=== PATIENT | male | born 1995 | race Two or more races ===

== ENCOUNTER 2019-06-06 17:06 | Inpatient (IN) | payer MEDICAID, OTHER ==
[~2019-06-06] VITALS: Ht 167.6 cm; Wt 68.9 kg
[2019-06-06] MEDS ORDERED: SODIUM CHLORIDE 0.9% 1,000 ML IVB ONE (17:39)
[2019-06-06] MEDS ORDERED: IODIXANOL 320MG/ML 100ML BTL IV ONE (17:42)
[2019-06-06] MEDS ORDERED: ONDANSETRON HCL 4 MG/2 ML VIAL IV ONE (17:45)
[2019-06-06] MEDS ORDERED: MORPHINE SULF INJ 2 MG/ML SYRINGE 1ML IV ONE (17:45)
[2019-06-06 17:58] LABS: Basophils # (auto) 0 10 ^3/uL (0-0.2); Eosinophils # (auto) 0.1 10 ^3/uL (0-0.8); Mean Corpuscular Hemoglobin 28.5 pg (28.0-32.0); Monocytes # (auto) 0.7 10 ^3/uL (0-1.3); Neutrophils % (auto) 50.5 % (37.0-80.0)
[2019-06-06 18:00] LABS: Basophils % (auto) 0.4 % (0.0-2.0); Eosinophils % (auto) 1.7 % (0.0-7.0); Hematocrit 53.2 % (41.0-53.0); Hemoglobin 17.7 g/dL (13.5-17.5); Lymphocytes % (auto) 38.2 % (10.0-50.0); Mean Corpuscular Hgb Conc. 33.3 g/dL (32.0-36.0); Mean Corpuscular Volume 85.5 fL (80.0-100.0); Monocytes % (auto) 9.2 % (0.0-12.0); Neutrophils # (auto) 3.9 10 ^3/uL (1.6-8.6); Nucleated Red Blood Cells % 1.6 %; Platelet Count (auto) 363 10^3/uL (140-450); Red Blood Cells 6.22 10^6/uL (4.5-5.90); Red Cell Distribution Width 13.4 % (11.8-14.3); White Blood Cell 7.8 10^3/uL (4.4-10.8)
[2019-06-06] MEDS ORDERED: KETOROLAC TROMETH 15 mg/ml 1ML VL IV ONE (18:15)
[2019-06-06] MEDS ORDERED: KETOROLAC TROMETH 30 MG/ML 1ML VIAL ONE (18:16)
[2019-06-06 18:22] LABS: Calcium 9.1 mg/dL (8.5-10.1); Potassium 3.7 mmol/L (3.5-5.1)
[2019-06-06 18:25] LABS: BUN/Creatinine Ratio 7.4; Bilirubin, Total 0.4 mg/dL (0.2-1.0); Total Protein 8.4 g/dL (6.4-8.2)
[2019-06-06 19:01] LABS: INR 0.98 (0.9-1.15)
[2019-06-06 20:19] LABS: Urine Amorphous Crystal FEW /hpf (None Seen); Urine Bacteria NONE SEEN /hpf (None Seen); Urine Blood 1+ /uL (Negative); Urine WBC None Seen /hpf (0 - 3)
[2019-06-06] MEDS ORDERED: TAMSULOSIN HYDROCHLORIDE 0.4 MG CAP PO ONE (20:30)
[2019-06-06 20:32] LABS: Urine Specific Gravity > 1.050 (1.001-1.035)
[2019-06-06] MEDS: SODIUM CHLORIDE 0.9% 1,000 ML IV SCH (21:20)
[2019-06-06] MEDS ORDERED: ACETAMINOPHEN 325 MG TAB PO PRN (21:30)
[2019-06-06] MEDS ORDERED: hydrALAZINE HCL 25 MG TAB PO PRN (21:30)
[2019-06-06] MEDS ORDERED: HYDROcodone-ACET 5/325MG TAB PO PRN (21:30)
[2019-06-06] MEDS ORDERED: MORPHINE SULFATE 4 MG/ML SYR/VIAL IV PRN (21:30)
[2019-06-06] MEDS ORDERED: DOCUSATE SOD 100 MG CAP PO PRN (21:30)
[2019-06-06] MEDS ORDERED: ONDANSETRON HCL 4 MG/2 ML VIAL IV PRN (21:30)
[2019-06-06] MEDS: FINASTERIDE 5 MG TAB PO SCH (22:22)
[2019-06-06] MEDS: TAMSULOSIN HYDROCHLORIDE 0.4 MG CAP PO SCH (22:22)
[2019-06-07] MEDS: SODIUM CHLORIDE 0.9% 1,000 ML IV SCH ×3 (04:00→17:20)
[2019-06-07 05:00] VITALS: BP 148/73
[2019-06-07 05:41] LABS: Basophils # (auto) 0 10 ^3/uL (0-0.2); Basophils % (auto) 0.4 % (0.0-2.0); Eosinophils # (auto) 0.2 10 ^3/uL (0-0.8); Eosinophils % (auto) 2.3 % (0.0-7.0); Hematocrit 47.2 % (41.0-53.0); Hemoglobin 15.9 g/dL (13.5-17.5); Lymphocytes # (auto) 2.5 10 ^3/uL (0.4-5.4); Lymphocytes % (auto) 30.3 % (10.0-50.0); Mean Corpuscular Hemoglobin 28.9 pg (28.0-32.0); Mean Corpuscular Hgb Conc. 33.7 g/dL (32.0-36.0); Mean Corpuscular Volume 85.5 fL (80.0-100.0); Monocytes # (auto) 0.8 10 ^3/uL (0-1.3); Monocytes % (auto) 9.4 % (0.0-12.0); Neutrophils # (auto) 4.7 10 ^3/uL (1.6-8.6); Neutrophils % (auto) 57.6 % (37.0-80.0); Nucleated Red Blood Cells % 0.6 %; Platelet Count (auto) 332 10^3/uL (140-450); Red Blood Cells 5.52 10^6/uL (4.5-5.90); Red Cell Distribution Width 13.5 % (11.8-14.3); White Blood Cell 8.1 10^3/uL (4.4-10.8)
[2019-06-07 05:56] LABS: Calcium 8.9 mg/dL (8.5-10.1); Potassium 3.7 mmol/L (3.5-5.1)
[2019-06-07 06:10] LABS: BUN/Creatinine Ratio 10.7
[2019-06-07 09:05] VITALS: BP 130/76
[2019-06-07] MEDS: TAMSULOSIN HYDROCHLORIDE 0.4 MG CAP PO SCH (10:05)
[2019-06-07] MEDS: FINASTERIDE 5 MG TAB PO SCH (10:05)
[2019-06-07] MEDS: MORPHINE SULFATE 4 MG/ML SYR/VIAL IV PRN (11:30)
[2019-06-07 13:00] VITALS: BP 144/74
[2019-06-07 17:04] VITALS: BP 152/78
--- NOTE | 2019-06-07 19:29 | NUR ---
Opening Shift Note Assumed care of patient. Pt is awake, alert, and orientated x 4. No S/S of distress/SOB or pain. Bed is in lowest position with side rail up x 2. Bed brakes are locked and call light is with in reach. HOB is 30 degrees. Instructed on POC and to call for assist PRN, will continue to monitor for changes Q1hr and PRN.
[2019-06-07 20:00] VITALS: BP 152/78
[2019-06-07 21:22] VITALS: BP 119/66
[2019-06-08] MEDS: MORPHINE SULFATE 4 MG/ML SYR/VIAL IV PRN ×2 (04:27→10:30)
[2019-06-08 04:31] LABS: Basophils # (auto) 0 10 ^3/uL (0-0.2); Basophils % (auto) 0.3 % (0.0-2.0); Eosinophils # (auto) 0.1 10 ^3/uL (0-0.8); Eosinophils % (auto) 1.4 % (0.0-7.0); Hemoglobin 15.7 g/dL (13.5-17.5); Lymphocytes % (auto) 27.3 % (10.0-50.0); Mean Corpuscular Hemoglobin 28.5 pg (28.0-32.0); Mean Corpuscular Hgb Conc. 33.3 g/dL (32.0-36.0); Mean Corpuscular Volume 85.7 fL (80.0-100.0); Monocytes # (auto) 0.6 10 ^3/uL (0-1.3); Monocytes % (auto) 8.1 % (0.0-12.0); Neutrophils # (auto) 4.5 10 ^3/uL (1.6-8.6); Neutrophils % (auto) 62.9 % (37.0-80.0); Nucleated Red Blood Cells % 0.1 %; Platelet Count (auto) 305 10^3/uL (140-450); Red Blood Cells 5.49 10^6/uL (4.5-5.90); Red Cell Distribution Width 13.6 % (11.8-14.3); White Blood Cell 7.2 10^3/uL (4.4-10.8)
[2019-06-08 04:53] LABS: BUN/Creatinine Ratio 10.6; Calcium 8.8 mg/dL (8.5-10.1); Potassium 3.6 mmol/L (3.5-5.1)
[2019-06-08 05:21] VITALS: BP 158/80
[2019-06-08] MEDS: SODIUM CHLORIDE 0.9% 1,000 ML IV SCH ×3 (06:40→13:20)
--- NOTE | 2019-06-08 07:10 | NUR ---
closing notes endorsed care to day shift nurseGermán.
--- NOTE | 2019-06-08 07:30 | NUR ---
Opening shift note Assumed care of patient. Patient lying down with eyes closed resting. Respirations even and non-labored with no s/s of distress. Will discuss POC with patient upon waking. Bed lowered/locked with 2 side rails up. Call light within reach. Will continue to monitor.
[2019-06-08 08:00] VITALS: BP 131/63
[2019-06-08 09:00] VITALS: BP 131/63
--- NOTE | 2019-06-08 10:12 | NUR ---
Pt is currently listed as having no insurance. Pt states they are currenrly starting a new job and will have insurance 06/10/2019. Discussed with pt jenniferility options for medical coverage with pt referred to Haseeb on their current situation. Pt referred to Haseeb Joshi, [facility] Consult assist with process for [facility] Insurance Coverage. Advised pt that additional information regarding D/c planning would be provided prior to their discharge. Will Follow up with Haseeb Regarding the instruance status Addendum: 06/08/19 at 1022 by ANA MARTINEZ SS Amended: Links added.
[2019-06-08] MEDS: TAMSULOSIN HYDROCHLORIDE 0.4 MG CAP PO SCH (10:23)
[2019-06-08] MEDS: FINASTERIDE 5 MG TAB PO SCH (10:23)
--- NOTE | 2019-06-08 10:25 | NUR ---
Pain Patient requesting pain medication for 8/10 abdominal pain. Administered morphine per EMAR. Will continue to monitor.
--- NOTE | 2019-06-08 11:15 | NUR ---
Pain reassessed Patient lying in bed stating that his pain is 0/10. No s/s of distress, will continue to monitor.
[2019-06-08 13:00] VITALS: BP 137/82
[2019-06-08 14:32] VITALS: BP 137/82
--- NOTE | 2019-06-08 16:48 | NUR ---
Discharge instructions given as ordered. Encourage to follow up with PMD as instructed. All questions and concerns addressed. Patient verbalized understanding. Medication reconciliation form completed and copy given to patient. IV removed with catheter intact, pressure dressing applied, Patient taken to vehicle via wheelchair with all personal belongings, accompanied by staff and family member. No distress noted at time of departure.
== END 2019-06-08 16:35 | disposition home or self-care (01) | DRG 463 ==
LOC: ER 17:06 → CENTRAL 17:07
PROVIDERS: ADMIT Hospitalist; ATTEND Internal Medicine
DX: N13.6 Pyonephrosis (principal); R16.0 Hepatomegaly, not elsewhere classified; I10 Essential (primary) hypertension
CPT/HCPCS: 36415; 71045; 74177; 80048; 80053; 81001; 83735; 85025; 85610; 85730; 87086; 96361; 96374; 96375; G0378; J1885; J2405; Q9967

== ENCOUNTER 2019-06-09 08:47 | Emergency (ER) | payer SELFPAY ==
[~2019-06-09] VITALS: Ht 167.6 cm; Wt 68.5 kg
[2019-06-09 08:59] VITALS: BP 154/98
[2019-06-09] MEDS ORDERED: SODIUM CHLORIDE 0.9% 1,000 ML IV ONE ×2 (09:08)
[2019-06-09] MEDS ORDERED: KETOROLAC TROMETH 60MG/2ML VIAL ONE (09:14)
[2019-06-09] MEDS ORDERED: KETOROLAC TROMETH 15 mg/ml 1ML VL IV ONE (09:15)
[2019-06-09] MEDS ORDERED: TAMSULOSIN HYDROCHLORIDE 0.4 MG CAP PO ONE (09:15)
[2019-06-09 09:39] LABS: Basophils # (auto) 0 10 ^3/uL (0-0.2); Basophils % (auto) 0.5 % (0.0-2.0); Eosinophils # (auto) 0.2 10 ^3/uL (0-0.8); Eosinophils % (auto) 4.1 % (0.0-7.0); Hematocrit 45.5 % (41.0-53.0); Hemoglobin 15.7 g/dL (13.5-17.5); Lymphocytes # (auto) 1.4 10 ^3/uL (0.4-5.4); Lymphocytes % (auto) 28.6 % (10.0-50.0); Mean Corpuscular Hemoglobin 29.4 pg (28.0-32.0); Mean Corpuscular Hgb Conc. 34.5 g/dL (32.0-36.0); Mean Corpuscular Volume 85.2 fL (80.0-100.0); Monocytes # (auto) 0.6 10 ^3/uL (0-1.3); Monocytes % (auto) 12.4 % (0.0-12.0); Neutrophils # (auto) 2.7 10 ^3/uL (1.6-8.6); Neutrophils % (auto) 54.4 % (37.0-80.0); Nucleated Red Blood Cells % 0.1 %; Platelet Count (auto) 302 10^3/uL (140-450); Red Blood Cells 5.33 10^6/uL (4.5-5.90); Red Cell Distribution Width 13.4 % (11.8-14.3)
[2019-06-09 09:57] LABS: BUN/Creatinine Ratio 14.3; Calcium 8.6 mg/dL (8.5-10.1); Potassium 3.7 mmol/L (3.5-5.1)
[2019-06-09 11:29] LABS: Urine Bacteria NONE SEEN /hpf (None Seen); Urine Blood 1+ /uL (Negative); Urine Mucus FEW (None Seen); Urine Specific Gravity 1.014 (1.001-1.035); Urine WBC 2 /hpf (0 - 3)
== END 2019-06-09 12:03 | disposition home or self-care (01) ==
LOC: ER 08:48
DX: N20.0 Calculus of kidney (principal); E86.0 Dehydration
CPT/HCPCS: 36415; 80048; 81001; 85025; 96361; 96374; 99284; J1885

== ENCOUNTER 2020-08-01 08:47 | Emergency (ER) | payer MEDICAID ==
[~2020-08-01] VITALS: Ht 167.6 cm; Wt 71.7 kg
[2020-08-01 09:13] LABS: Basophils # (auto) 0 10 ^3/uL (0-0.2); Basophils % (auto) 0.6 % (0.0-2.0); Eosinophils # (auto) 0.2 10 ^3/uL (0-0.8); Eosinophils % (auto) 3.5 % (0.0-7.0); Hematocrit 46.9 % (41.0-53.0); Hemoglobin 16.4 g/dL (13.5-17.5); Lymphocytes # (auto) 1.7 10 ^3/uL (0.4-5.4); Mean Corpuscular Hemoglobin 28.8 pg (28.0-32.0); Mean Corpuscular Hgb Conc. 34.9 g/dL (32.0-36.0); Mean Corpuscular Volume 82.4 fL (80.0-100.0); Monocytes # (auto) 0.4 10 ^3/uL (0-1.3); Monocytes % (auto) 7.3 % (0.0-12.0); Neutrophils % (auto) 56.6 % (37.0-80.0); Nucleated Red Blood Cells % 0.4 %; Platelet Count (auto) 302 10^3/uL (140-450); Red Blood Cells 5.69 10^6/uL (4.5-5.90); White Blood Cell 5.3 10^3/uL (4.4-10.8)
[2020-08-01 09:30] LABS: Albumin 3.8 g/dL (3.4-5.0); Anion Gap 7 (5-15); Blood Urea Nitrogen 12 mg/dL (7-18); Calcium 8.9 mg/dL (8.5-10.1); Carbon Dioxide 27 mmol/L (21-32); Chloride 105 mmol/L (98-107); Glucose 102 mg/dL (74-106); Potassium 3.8 mmol/L (3.5-5.1); Sodium 139 mmol/L (136-145)
[2020-08-01 09:35] LABS: Alanine Aminotransferase 55 U/L (16-61); Alkaline Phosphatase 109 U/L (45-117); Aspartate Aminotransferase 22 U/L (15-37); BUN/Creatinine Ratio 17.1; Bilirubin, Total 0.4 mg/dL (0.2-1.0); GFR African American 178 mL/min; GFR Non-African American 147 mL/min; Total Protein 7.5 g/dL (6.4-8.2)
[2020-08-01 09:50] VITALS: BP 149/92
== END 2020-08-01 10:11 | disposition home or self-care (01) ==
LOC: ER 08:47
DX: R07.89 Other chest pain (principal); F41.9 Anxiety disorder, unspecified
CPT/HCPCS: 36415; 71045; 80053; 84484; 85025; 93005

== ENCOUNTER 2020-09-17 14:32 | Emergency (ER) | payer MEDICAID ==
[~2020-09-17] VITALS: Ht 165.1 cm; Wt 68.5 kg
[2020-09-17 14:55] LABS: Urine WBC None Seen /hpf (0 - 3)
[2020-09-17 15:10] LABS: Urine Amorphous Crystal FEW /hpf (None Seen); Urine Bacteria NONE SEEN /hpf (None Seen); Urine Blood Negative /uL (Negative); Urine Specific Gravity 1.022 (1.001-1.035)
[2020-09-17 15:19] LABS: Alcohol, Urine < 3.0 mg/dL (0-10); Amphetamine Screen, Urine NEGATIVE (NEGATIVE); Barbiturate Scree,Urine NEGATIVE (NEGATIVE); Benzodiazephine Screen, Urine NEGATIVE (NEGATIVE); Cannabinoid Screen, Urine NEGATIVE (NEGATIVE); Cocaine Screen, Urine NEGATIVE (NEGATIVE); Opiate Scree,Urine NEGATIVE (NEGATIVE); Phencyclidine Screen, Urine NEGATIVE (NEGATIVE)
[2020-09-17 15:38] LABS: Basophils # (auto) 0 10 ^3/uL (0-0.2); Basophils % (auto) 0.6 % (0.0-2.0); Eosinophils # (auto) 0.2 10 ^3/uL (0-0.8); Eosinophils % (auto) 3.8 % (0.0-7.0); Hematocrit 41.9 % (41.0-53.0); Hemoglobin 15.1 g/dL (13.5-17.5); Lymphocytes % (auto) 37.8 % (10.0-50.0); Mean Corpuscular Hemoglobin 29.4 pg (28.0-32.0); Mean Corpuscular Volume 81.7 fL (80.0-100.0); Monocytes # (auto) 0.6 10 ^3/uL (0-1.3); Monocytes % (auto) 10.8 % (0.0-12.0); Neutrophils # (auto) 2.5 10 ^3/uL (1.6-8.6); Nucleated Red Blood Cells % 0.1 %; Red Blood Cells 5.13 10^6/uL (4.5-5.90); Red Cell Distribution Width 12.9 % (11.8-14.3); White Blood Cell 5.3 10^3/uL (4.4-10.8)
[2020-09-17 15:55] LABS: Albumin 3.9 g/dL (3.4-5.0); Calcium 8.5 mg/dL (8.5-10.1); Potassium 3.8 mmol/L (3.5-5.1)
[2020-09-17 15:59] LABS: BUN/Creatinine Ratio 16.9; Bilirubin, Total 0.7 mg/dL (0.2-1.0); Total Protein 7.4 g/dL (6.4-8.2)
[2020-09-17] MEDS ORDERED: MECLIZINE HCL 25 MG TAB PO ONE (17:45)
[2020-09-17 17:55] VITALS: BP 136/80
== END 2020-09-17 19:07 | disposition home or self-care (01) ==
LOC: ER 14:32
DX: R42 Dizziness and giddiness (principal); R51.9 Headache, unspecified
CPT/HCPCS: 36415; 70450; 80053; 80307; 81001; 84443; 84484; 85025; 85049; 93005; 99285; J8597

== ENCOUNTER 2023-02-04 13:36 | Emergency (ER) | payer MEDICAID ==
[~2023-02-04] VITALS: Ht 167.6 cm; Wt 75.2 kg
[2023-02-04 13:48] VITALS: BP 150/96; PULSE 86; RESP 16; O2SAT 99
[2023-02-04 15:29] LABS: Urine Bacteria NONE SEEN /hpf (None Seen); Urine Blood Negative /uL (Negative); Urine Clarity Clear (Clear); Urine Color Yellow (Yellow); Urine Protein, UAD TRACE (Negative); Urine Urobilinogen Normal (Negative); Urine WBC <1 /hpf (0 - 3); Urine pH 8.5 (5.0-8.0)
[2023-02-04] MEDS ORDERED: HYDROcodone-ACET 5/325MG TAB PO ONE (17:30)
[2023-02-04] MEDS ORDERED: HYDR-4902 PO (17:33)
[2023-02-06 18:06] LABS: Chlamydia Trachomatis, NAA Negative (Negative); Neisseria gonorrhoeae, NAA Negative (Negative)
== END 2023-02-04 21:45 | disposition home or self-care (01) ==
LOC: ER 13:36
DX: N50.819 Testicular pain, unspecified (principal); Z20.2 Contact with and (suspected) exposure to infections with a predominantly sexual mode of transmission
CPT/HCPCS: 76870; 81001